=== PATIENT | female | born 2000 | race Two or more races ===

== ENCOUNTER 2022-12-19 09:16 | Outpatient (CLI) | payer OTHER | END 2022-12-19 10:16 | disposition home or self-care (01) | LOC: PRENATAL 09:16 | PROVIDERS: ATTEND Obstetrics & Gynecology Maternal & Fetal Medicine | DX: O26.849 Uterine size-date discrepancy, unspecified trimester (principal); Z3A.15 15 weeks gestation of pregnancy ==

== ENCOUNTER 2023-01-22 11:49 | Outpatient (CLI) | payer OTHER | END 2023-01-22 13:38 | disposition home or self-care (01) | LOC: PRENATAL 11:49 | PROVIDERS: ATTEND Obstetrics & Gynecology Maternal & Fetal Medicine | DX: O35.9XX0 Maternal care for (suspected) fetal abnormality and damage, unspecified, not applicable or unspecified (principal); O35.3XX0 Maternal care for (suspected) damage to fetus from viral disease in mother, not applicable or unspecified; O43.90 Unspecified placental disorder, unspecified trimester; O26.879 Cervical shortening, unspecified trimester; Z3A.20 20 weeks gestation of pregnancy ==

== ENCOUNTER 2023-03-20 13:44 | Outpatient (CLI) | payer OTHER | END 2023-03-20 16:39 | disposition home or self-care (01) | LOC: PRENATAL 13:44 | PROVIDERS: ATTEND Obstetrics & Gynecology Maternal & Fetal Medicine | DX: O26.849 Uterine size-date discrepancy, unspecified trimester (principal); O43.90 Unspecified placental disorder, unspecified trimester; O26.879 Cervical shortening, unspecified trimester; O36.5990 Maternal care for other known or suspected poor fetal growth, unspecified trimester, not applicable or unspecified; Z3A.28 28 weeks gestation of pregnancy ==

== ENCOUNTER 2023-04-09 11:14 | Outpatient (CLI) | payer OTHER | END 2023-04-09 12:34 | disposition home or self-care (01) | LOC: PRENATAL 11:14 | PROVIDERS: ATTEND Obstetrics & Gynecology Maternal & Fetal Medicine | DX: O26.849 Uterine size-date discrepancy, unspecified trimester (principal); O36.8199 Decreased fetal movements, unspecified trimester, other fetus; O36.5990 Maternal care for other known or suspected poor fetal growth, unspecified trimester, not applicable or unspecified; Z3A.31 31 weeks gestation of pregnancy ==

== ENCOUNTER 2023-04-30 10:41 | Outpatient (CLI) | payer OTHER | END 2023-04-30 13:25 | disposition home or self-care (01) | LOC: PRENATAL 10:41 | PROVIDERS: ATTEND Obstetrics & Gynecology Maternal & Fetal Medicine | DX: O26.849 Uterine size-date discrepancy, unspecified trimester (principal); O36.5990 Maternal care for other known or suspected poor fetal growth, unspecified trimester, not applicable or unspecified; O36.8199 Decreased fetal movements, unspecified trimester, other fetus; Z3A.34 34 weeks gestation of pregnancy ==

== ENCOUNTER 2023-06-01 23:11 | Outpatient (CLI) | payer OTHER ==
[2023-06-01] MEDS ORDERED: PRENATAL TABLE1 EAC1 PO (23:17)
[2023-06-01 23:47] LABS: PH,URINE 6.5 (5.0-8.0); URINE APPEARANCE Clear; URINE BILIRRUBIN Negative (NEGATIVE); URINE BLOOD NHT; URINE COLOR Yellow; URINE GLUCOSE Negative (NEGATIVE); URINE LEUKOCYTE Negative; URINE NITRATE Negative
[2023-06-01 23:50] LABS: URINE BACTERIA 1098.6 uL (0.0-1933); URINE EPITHELIAL CELLS 37.8 uL (0.0-38.8); URINE RBC 41.6 uL (0.0-20.8); URINE WBC 67.3 uL (0.0-23.2)
[2023-06-01 23:51] LABS: HEMATOCRIT 36.2 % (36.0-45.00); HEMOGLOBIN 11.8 g/dL (12.0-15.00); MEAN CELL VOLUME 91.4 fL (80.00-100.00); MEAN CORPUSCULAR HEMOGLOBIN 29.9 pg (27.00-32.0); MEAN CORPUSCULAR HGB CONC 32.7 g/dl (32.0-36.0); PLATELET COUNT 274 K/uL (150-450); RED BLOOD COUNT 3.95 M/uL (4.00-6.00); RED CELL DISTRIBUTION WIDTH 12.7 % (11.5-14.5)
[2023-06-01 23:52] LABS: URINE PROTEIN 100 (NEGATIVE)
== END 2023-06-02 08:37 | disposition home or self-care (01) ==
LOC: OBS/DEL 23:11
PROVIDERS: Specialist; ATTEND Obstetrics & Gynecology
DX: O47.1 False labor at or after 37 completed weeks of gestation (principal); Z3A.38 38 weeks gestation of pregnancy

== ENCOUNTER 2023-06-04 08:11 | Inpatient (IN) | payer OTHER ==
[~2023-06-04] VITALS: Ht 160 cm; Wt 88.5 kg
[~2023-06-04 08:11] MED LIST: PRENATAL TABLE1 EAC1 PO
[2023-06-04 09:08] LABS: HEMATOCRIT 35.9 % (36.0-45.00); HEMOGLOBIN 11.6 g/dL (12.0-15.00); MEAN CELL VOLUME 91.7 fL (80.00-100.00); MEAN CORPUSCULAR HEMOGLOBIN 29.6 pg (27.00-32.0); MEAN CORPUSCULAR HGB CONC 32.3 g/dl (32.0-36.0); PLATELET COUNT 263 K/uL (150-450); RED BLOOD COUNT 3.91 M/uL (4.00-6.00)
[2023-06-04 09:13] LABS: URINE APPEARANCE Clear; URINE BILIRRUBIN Negative (NEGATIVE); URINE BLOOD Negative; URINE COLOR Yellow; URINE GLUCOSE Negative (NEGATIVE); URINE LEUKOCYTE Trace; URINE NITRATE Negative; URINE PROTEIN Trace (NEGATIVE)
[2023-06-04 09:16] LABS: URINE BACTERIA 342.6 uL (0.0-1933); URINE EPITHELIAL CELLS 16.9 uL (0.0-38.8); URINE RBC 18.3 uL (0.0-20.8); URINE WBC 17.1 uL (0.0-23.2)
[2023-06-04 09:55] LABS: INR 0.94; PARTIAL THROMBOPLASTIN TIME 28.2 SECONDS (22.0-34.0); PROTHROMBIN TIME 9.9 SECONDS (9.0-11.5)
[2023-06-04 15:57] LABS: ABG PH 7.369 (7.35-7.45); ABG pCO2 41.3 mmHg (35-45); BASE EXCESS -1.9 mmol/l; BICARBONATE 23.3 mmol/l (23-25); Tco2 24.6 mmol/l
[2023-06-04 17:39] LABS: HEMATOCRIT 36.3 % (36.0-45.00); MEAN CELL VOLUME 91.1 fL (80.00-100.00); MEAN CORPUSCULAR HEMOGLOBIN 30.2 pg (27.00-32.0); MEAN CORPUSCULAR HGB CONC 33.1 g/dl (32.0-36.0); PLATELET COUNT 260 K/uL (150-450); RED BLOOD COUNT 3.99 M/uL (4.00-6.00); RED CELL DISTRIBUTION WIDTH 12.8 % (11.5-14.5)
[2023-06-04 23:44] LABS: ABG PO2 29.7 mmHg (80-100)
[2023-06-04 23:46] LABS: o2 21 %
[2023-06-04 23:47] LABS: SaO2 53.6 %
== END 2023-06-06 13:14 | disposition home or self-care (01) | DRG 807 ==
LOC: LDR 08:11 → OB/GYN 15:35
PROVIDERS: ADMIT Obstetrics & Gynecology; ATTEND Obstetrics & Gynecology
PROC: 10E0XZZ Delivery of Products of Conception, External Approach (ICD-10-PCS; principal; 2023-06-04)
PROC: 0UQG7ZZ Repair Vagina, Via Natural or Artificial Opening (ICD-10-PCS; 2023-06-04)
PROC: 4A1HXCZ Monitoring of Products of Conception, Cardiac Rate, External Approach (ICD-10-PCS; 2023-06-04)
DX: O71.4 Obstetric high vaginal laceration alone (principal); Z37.0 Single live birth; Z3A.39 39 weeks gestation of pregnancy; Z20.822 Contact with and (suspected) exposure to COVID-19